=== PATIENT | female | born 1985 ===

== ENCOUNTER 2021-01-24 03:30 | Inpatient (IN) | payer OTHER ==
[2021-01-24] MEDS ORDERED: AMPICILLIN SODIUM 2 GM VIAL IVPB ONE (04:25)
[2021-01-24] MEDS ORDERED: ELECTROLYTE-148 SOLN 500 ML IV SCH (04:25)
[2021-01-24] MEDS ORDERED: AMPICILLIN SODIUM 2 GM VIAL ONE (04:57)
[2021-01-24 05:17] VITALS: BMI 27.7
[2021-01-24 05:32] LABS: BASO % 0.1 % (0-2.0); EOS % 0.1 % (0-4.5); HEMATOCRIT 35.1 % (32.4-45.2); HEMOGLOBIN 12.2 GM/dL (10.7-15.3); LYMPH % 12.1 % (8-40); MCH 32.6 pg (25.7-33.7); MCHC 34.8 g/dl (32.0-36.0); MEAN CELL VOLUME 93.7 fl (80-96); MEAN PLT VOLUME 8.5 fl (7.5-11.1); MONO % 6.4 % (3.8-10.2); NEUT % 81.3 % (42.8-82.8); PLATELET COUNT 197 K/MM3 (134-434); RBC 3.75 M/mm3 (3.60-5.2); RDW 12.5 % (11.6-15.6); WHITE BLOOD COUNT 12.7 K/mm3 (4.0-10.0)
[2021-01-24 05:39] LABS: INR 0.91 (0.83-1.09)
[2021-01-24] MEDS ORDERED: PCA PUMP NR ONE ×2 (05:40→10:56)
[2021-01-24] MEDS ORDERED: FENTANYL/BUPIVACAINE/NS/PF - PCEA - 50 ML DISP.SYRIN EP ONE ×2 (05:40→10:56)
[2021-01-24 05:41] LABS: ACTIVATED PTT 29.3 SECONDS (25.2-36.5)
[2021-01-24 05:47] LABS: POTASSIUM 4.1 mmol/L (3.5-5.1)
[2021-01-24 05:49] LABS: CALCIUM 8.5 mg/dL (8.5-10.1)
[2021-01-24] MEDS ORDERED: NALOXONE HCL 0.4 MG/ML VIAL IVPUSH PRN (05:49)
[2021-01-24 05:50] LABS: ALBUMIN 2.7 g/dl (3.4-5.0)
[2021-01-24] MEDS ORDERED: BUPIVACAINE HCL/PF 0.25% (2.5MG/ML) 10 ML VIAL ONE (05:51)
[2021-01-24 05:53] LABS: CREATININE 0.7 mg/dL (0.55-1.3)
[2021-01-24 05:55] LABS: BILIRUBIN,TOTAL 0.2 mg/dL (0.2-1); TOT PROT 6.1 g/dl (6.4-8.2)
[2021-01-24] MEDS: FENTANYL/BUPIVACAINE/NS/PF - PCEA - 50 ML DISP.SYRIN EP SCH (06:10)
[2021-01-24 06:18] LABS: SYPHILIS W/ RPR CONF NON-REACTIVE (NONREACTIVE)
[2021-01-24] MEDS: ELECTROLYTE-148 SOLN 500 ML IV SCH (06:25)
[2021-01-24 06:47] LABS: HIV INTERPRETATION NEGATIVE (NEGATIVE)
[2021-01-24 07:46] LABS: URINE APPEARANCE CLEAR; URINE BILIRUBIN NEGATIVE (NEGATIVE); URINE COLOR YELLOW; URINE GLUCOSE (UA) NEGATIVE (NEGATIVE); URINE KETONE NEGATIVE (NEGATIVE); URINE LEUK ESTERASE NEGATIVE (NEGATIVE); URINE NITRITE NEGATIVE (NEGATIVE); URINE PROTEIN NEGATIVE (NEGATIVE); URINE UROBILINOGEN 0.2 mg/dL (0.2-1.0)
[2021-01-24 08:43] LABS: METHADONE, UR NEGATIVE ng/ml (CUTOFF=300); PHENCYCLIDINE,URINE NEGATIVE ng/ml (CUTOFF=25); URINE BARBITURATES NEGATIVE ng/ml (CUTOFF=200); URINE BENZODIAZEPINES NEGATIVE ng/ml (CUTOFF=200)
[2021-01-24 08:48] LABS: COCAINE, UR NEGATIVE ng/ml (CUTOFF=300); OPIATES, URI NEGATIVE ng/ml (CUTOFF=300); URINE AMPHETAMINES NEGATIVE ng/ml (CUTOFF=500)
[2021-01-24 09:15] LABS: POC NITRAZINE NEG
[2021-01-24] MEDS: AMPICILLIN SODIUM 1 GM VIAL IVPB SCH ×2 (10:00→12:34)
[2021-01-24] MEDS ORDERED: AMPICILLIN SODIUM 1 GM VIAL ONE ×2 (10:07→12:29)
[2021-01-24] MEDS ORDERED: BETAMET ACET/BETAMET NA PH 30 MG/5 ML VIAL ONE (10:07)
[2021-01-24] MEDS: BETAMET ACET/BETAMET NA PH 30 MG/5 ML VIAL IM SCH (10:10)
[2021-01-24] MEDS: DEXTROSE 5%-LACTATED RINGERS 1,000 ML IV SCH (12:30)
[2021-01-24] MEDS ORDERED: DEXTROSE 5%-LACTATED RINGERS 1,000 ML IV ONE (12:45)
[2021-01-24] MEDS ORDERED: OXYTOCIN 20 UNITS in 0.9% NS 20 UNIT/1,000 ML INFUS.BAG IV ONE (13:22)
[2021-01-24] MEDS: OXYTOCIN 20 UNITS in 0.9% NS 20 UNIT/1,000 ML INFUS.BAG IV SCH (13:35)
[2021-01-24] MEDS ORDERED: BENZOCAINE 20% 57 GM BOTTLE TP PRN (14:55)
[2021-01-24] MEDS ORDERED: WITCH HAZEL 50% (TUCKS) 40 PAD/JAR PAD TP PRN (14:55)
[2021-01-24] MEDS ORDERED: BISACODYL 10 MG SUPP.RECT RC PRN (14:55)
[2021-01-24] MEDS ORDERED: BENZOCAINE 28 GM HEMORRHOIDAL OINTMENT TP PRN (14:55)
[2021-01-24] MEDS ORDERED: IBUPROFEN 600 MG TABLET (FP) PO ONE (16:03)
[2021-01-24] MEDS ORDERED: ACETAMINOPHEN 325 MG TABLET (FP) ONE (16:03)
[2021-01-24] MEDS: IBUPROFEN 600 MG TABLET (FP) PO PRN ×2 (16:05→20:43)
[2021-01-24] MEDS: ACETAMINOPHEN 325 MG TABLET (FP) PO PRN ×2 (16:05→20:43)
[2021-01-24] MEDS: FERROUS SO4 325 MG TABLET (FP) PO SCH (17:19)
[2021-01-25] MEDS: ACETAMINOPHEN 325 MG TABLET (FP) PO PRN ×4 (00:49→21:02)
[2021-01-25] MEDS: IBUPROFEN 600 MG TABLET (FP) PO PRN ×4 (00:49→21:04)
[2021-01-25] MEDS: FERROUS SO4 325 MG TABLET (FP) PO SCH ×3 (08:13→17:06)
[2021-01-25 08:23] LABS: BASO % 0.1 % (0-2.0); HEMATOCRIT 30.7 % (32.4-45.2); HEMOGLOBIN 10.6 GM/dL (10.7-15.3); LYMPH % 7.2 % (8-40); MCH 33.1 pg (25.7-33.7); MCHC 34.7 g/dl (32.0-36.0); MEAN CELL VOLUME 95.5 fl (80-96); MEAN PLT VOLUME 8.8 fl (7.5-11.1); MONO % 6.7 % (3.8-10.2); PLATELET COUNT 192 K/MM3 (134-434); RBC 3.22 M/mm3 (3.60-5.2); RDW 12.9 % (11.6-15.6); WHITE BLOOD COUNT 19.2 K/mm3 (4.0-10.0)
[2021-01-25] MEDS: PRENATAL VITAMINS W/ FOLIC ACID TABLET (FP) PO SCH (09:49)
[2021-01-25] MEDS: BETAMET ACET/BETAMET NA PH 30 MG/5 ML VIAL IM SCH (20:59)
[2021-01-25] MEDS: FENTANYL/BUPIVACAINE/NS/PF - PCEA - 50 ML DISP.SYRIN EP SCH (20:59)
[2021-01-25] MEDS: ELECTROLYTE-148 SOLN 500 ML IV SCH (20:59)
[2021-01-25] MEDS: OXYTOCIN 20 UNITS in 0.9% NS 20 UNIT/1,000 ML INFUS.BAG IV SCH (21:01)
[2021-01-25] MEDS: DEXTROSE 5%-LACTATED RINGERS 1,000 ML IV SCH (21:01)
[2021-01-25] MEDS ORDERED: SENNOSIDES/DOCUSATE COMBO (SENNA PLUS) TABLET (UD) PO PRN (22:00)
[2021-01-26] MEDS: ACETAMINOPHEN 325 MG TABLET (FP) PO PRN ×3 (01:51→12:58)
[2021-01-26] MEDS: IBUPROFEN 600 MG TABLET (FP) PO PRN ×3 (01:52→12:57)
[2021-01-26] MEDS: FERROUS SO4 325 MG TABLET (FP) PO SCH ×2 (08:22→12:41)
[2021-01-26] MEDS: PRENATAL VITAMINS W/ FOLIC ACID TABLET (FP) PO SCH (10:23)
[2021-01-26 10:52] VITALS: BP 95/55; PULSE 76; TEMP 98.1
== END 2021-01-26 13:25 | disposition home or self-care (01) | DRG 560 ==
LOC: JDEL 03:30 → JLDR 04:20 → J3W 16:05
PROVIDERS: ADMIT Pediatrics; ATTEND Obstetrics & Gynecology Maternal & Fetal Medicine
PROC: 10E0XZZ Delivery of Products of Conception, External Approach (ICD-10-PCS; principal; 2021-01-24)
PROC: 0KQM0ZZ Repair Perineum Muscle, Open Approach (ICD-10-PCS; 2021-01-24)
DX: O60.14X0 Preterm labor third trimester with preterm delivery third trimester, not applicable or unspecified (principal); O70.1 Second degree perineal laceration during delivery; Z3A.36 36 weeks gestation of pregnancy; Z37.0 Single live birth
CPT/HCPCS: 36415; 59409; 80053; 80307; 81003; 83986-QW; 85025; 85610; 85730; 86762; 86780; 86850; 86900; 86901; 87340; 87389; 96372; C9803; U0003